=== PATIENT | female | born 1980 | race African-American/Black ===

== ENCOUNTER 2016-07-23 04:35 | Emergency (ER) | payer OTHER ==
[~2016-07-23] VITALS: Ht 165.1 cm; Wt 70.3 kg
[2016-07-23] MEDS ORDERED: MELO15TA4 PO (05:21)
[2016-07-23] MEDS ORDERED: IRON65TA PO (05:21)
[2016-07-23] MEDS ORDERED: CYCL10TA PO (05:21)
== END 2016-07-23 06:41 | disposition left against medical advice (07) ==
LOC: M ED 05:54
DX: K08.89 Other specified disorders of teeth and supporting structures (principal); Z53.29 Procedure and treatment not carried out because of patient's decision for other reasons

== ENCOUNTER 2016-12-08 08:05 | Emergency (ER) | payer OTHER ==
[~2016-12-08] VITALS: Ht 167.6 cm; Wt 71.8 kg
[~2016-12-08 08:05] MED LIST: CYCL10TA PO; IRON65TA PO; MELO15TA4 PO
[2016-12-08] MEDS ORDERED: IBUP200C10 PO (08:24)
[2016-12-08] MEDS ORDERED: ONDANSETRON 4MG/2ML VIAL (J2405) IV ONE (09:00)
[2016-12-08] MEDS ORDERED: NS 1,000 ML IV ONE (09:00)
[2016-12-08 09:21] LABS: ADD MANUAL DIFFER YES; MEAN CORPUSCULAR HEMOGLOBIN 23.8 pg (27.0-33.0); MEAN CORPUSCULAR VOLUME 79.2 fl (80.0-96.0); PLATELET COUNT, AUTOMATED 393 k/mm3 (150-450); RED CELL DISTRIBUTION WIDTH 16.4 % (11.5-14.5); WHITE BLOOD COUNT 4.2 K/mm3 (4.0-10.0)
[2016-12-08 09:52] LABS: EOSINOPHILS 3 % (0-5); HYPOCHROMASIA 3+; PLATELET CLUMPS SMALL AMT
[2016-12-08 10:15] LABS: ALBUMIN 3.4 GM/DL (3.2-5.2); ALBUMIN/GLOBULIN RATIO 0.87 (1.00-1.93); ALKALINE PHOSPHATASE 58 U/L (45-117); ALT/SGPT 16 U/L (12-78); AMYLASE 57 U/L (25-115); ANION GAP 9 MEQ/L (8-16); AST/SGOT 14 U/L (15-37); BILIRUBIN,DIRECT 0.1 MG/DL (0.0-0.2); BILIRUBIN,TOTAL 0.3 MG/DL (0.2-1.0); BLOOD UREA NITROGEN 8 MG/DL (7-18); CALCIUM LEVEL 8.3 MG/DL (8.5-10.1); CARBON DIOXIDE LEVEL 27 MEQ/L (21-32); CHLORIDE LEVEL 106 MEQ/L (98-107); CREATININE FOR GFR 0.68 MG/DL (0.55-1.02); GLOMERULAR FILTRATION RATE > 60.0 (>60); GLUCOSE, FASTING 96 MG/DL (70-105); POTASSIUM SERUM 3.4 MEQ/L (3.5-5.1); SODIUM LEVEL 142 MEQ/L (136-145); TOTAL PROTEIN 7.3 GM/DL (6.4-8.2)
[2016-12-08] MEDS ORDERED: ISOVUE-370 76% 100ML VIAL (Q9967) As Ordered ONE (10:38)
[2016-12-08 11:29] LABS: CONTROL LINE HCG INT CTR LINE PRESENT
--- NOTE | 2016-12-08 12:06 | REP ---
CT of the abdomen and pelvis with IV contrast, without bowel contrast: Comparison is 04/07/2015. Pelvis: The cecum is on a redundant mesentery is located in the pelvis on the left. The appendix has a normal appearance. There is no CT evidence of appendicitis. There is a small volume of ascites in the dependent pelvis. The uterus and adnexa are unremarkable. There is no adenopathy or mass. The pelvic bowel loops are otherwise unremarkable. Abdomen: The visualized lung florian are unremarkable. The hepatic parenchyma, gallbladder, pancreas and spleen are unremarkable. The adrenals, kidneys, abdominal aorta, bowel and mesentery are unremarkable. Impression: Small volume of ascites in the dependent pelvis. The appendix has a normal appearance. The cecum is on a redundant mesentery in the cecum and appendix are located in the pelvis on the left. Signed by Joey Bauman MD 12/08/2016 11:57 A
[2016-12-08 12:42] VITALS: BP 144/77
== END 2016-12-08 13:01 | disposition home or self-care (01) ==
LOC: M ED 08:05
DX: R10.9 Unspecified abdominal pain (principal)
CPT/HCPCS: 36415; 74177; 80048; 80076; 81001; 82150; 83605; 83690; 84703; 85025; 87040; 87086; 87210; 87491; 87591; 96374; 99283; Q9967

== ENCOUNTER 2017-02-18 16:56 | Emergency (ER) | payer OTHER ==
[~2017-02-18] VITALS: Ht 165.1 cm; Wt 73.6 kg
[~2017-02-18 16:56] MED LIST changes: +IBUP200C10 PO
[2017-02-18 19:12] LABS: CONTROL LINE UCG INT CTR LINE PRESENT
[2017-02-18 19:15] LABS: BASO % 0.5 % (0.0-1.0); EOS # 0.1 10^3/uL (0.0-0.50); EOS % 1.1 % (0.0-3.0); IMMATURE GRANULOCYTE % 0.4 % (0-0); LYMPH # 1.4 10^3/uL (1.5-4.5); MEAN CORPUSCULAR HEMOGLOBIN 28.1 pg (27.0-33.0); MEAN CORPUSCULAR HGB CONC 30.9 g/dl (32.0-36.5); MEAN CORPUSCULAR VOLUME 90.6 fl (80.0-96.0); MONO # 0.6 10^3/uL (0.0-0.8); MONO % 10.2 % (0.0-5.0); NEUTROPHILS # 3.4 10^3/uL (1.8-7.7); NEUTROPHILS % 61.8 % (36.0-66.0); PLATELET COUNT, AUTOMATED 207 10^3/uL (150-450); WHITE BLOOD COUNT 5.5 10^3/uL (4.0-10.0)
[2017-02-18 19:21] LABS: ADD MORPHOLOGY? YES; POSITIVE MORPH POS FLAG; RED CELL DISTRIBUTION WIDTH 20.7 % (11.5-14.5)
[2017-02-18 19:49] LABS: ALBUMIN 3.7 GM/DL (3.2-5.2); ALKALINE PHOSPHATASE 57 U/L (45-117); ALT/SGPT 31 U/L (12-78); ANION GAP 7 MEQ/L (8-16); AST/SGOT 22 U/L (15-37); BILIRUBIN,DIRECT < 0.1 MG/DL (0.0-0.2); BILIRUBIN,TOTAL 0.2 MG/DL (0.2-1.0); BLOOD UREA NITROGEN 16 MG/DL (7-18); CALCIUM LEVEL 8.7 MG/DL (8.5-10.1); CARBON DIOXIDE LEVEL 29 MEQ/L (21-32); CHLORIDE LEVEL 105 MEQ/L (98-107); CREATININE FOR GFR 0.71 MG/DL (0.55-1.02); FREE T4 0.94 NG/DL (0.76-1.46); GLOMERULAR FILTRATION RATE > 60.0 (>60); GLUCOSE, FASTING 85 MG/DL (70-105); POTASSIUM SERUM 3.7 MEQ/L (3.5-5.1); SODIUM LEVEL 141 MEQ/L (136-145); TOTAL PROTEIN 7.4 GM/DL (6.4-8.2)
[2017-02-18 19:55] LABS: ANISOCYTOSIS 2+; HYPOCHROMASIA 1+; MICROCYTOSIS 1+
--- NOTE | 2017-02-18 19:55 | REP ---
PA and lateral chest: The lung florian are clear. The cardiac size is normal The rachele, mediastinum, and bony thorax are unremarkable. Impression: Negative PA and lateral chest. There is no interval change. Comparison is 05/29/2015. Signed by Joey Bauman MD 02/18/2017 07:46 P
[2017-02-18 20:09] VITALS: BP 134/83
--- NOTE | 2017-02-19 05:59 | ECGEPIP ---
Stationary ECG Study [facility] - ED Test Date: 2017-02-18 Pat Name: MATIAS GARCIA Department: Room: - Gender: F Laundry Operator: ct : 1980 Requested By: NESS Olivo PA-C Order Number: [id number] Reading MD: Rito Bland Measurements Intervals [place] Rate: 76 P: 9 FL: 142 QRS: 49 QRSD: 86 T: -2 QT: 366 QTc: 412 Interpretive Statements SINUS RHYTHM INCOMPLETE RIGHT BUNDLE BRANCH BLOCK NSTTW ABNORMALITIES Electronically Signed On 02-19-2017 5:59:17 EDT by Rito Bland
== END 2017-02-18 20:28 | disposition home or self-care (01) ==
LOC: M ED 16:56
DX: M54.2 Cervicalgia (principal); R07.89 Other chest pain; Z73.3 Stress, not elsewhere classified; D64.9 Anemia, unspecified

== ENCOUNTER 2017-04-06 05:15 | Emergency (ER) | payer OTHER ==
[~2017-04-06] VITALS: Ht 165.1 cm; Wt 74.1 kg
[2017-04-06] MEDS ORDERED: ONDANSETRON 4MG/2ML VIAL (J2405) IV ONE (06:15)
[2017-04-06] MEDS ORDERED: NS 1,000 ML IV ONE (06:15)
[2017-04-06] MEDS ORDERED: KETOROLAC 30 MG/ML VIAL (J1885) IV ONE (06:15)
[2017-04-06 06:59] LABS: BASO % 0.5 % (0.0-1.0); EOS # 0.1 10^3/uL (0.0-0.50); EOS % 1.6 % (0.0-3.0); IMMATURE GRANULOCYTE % 0.2 % (0-0); LYMPH % 34.7 % (24.0-44.0); MEAN CORPUSCULAR HEMOGLOBIN 29.2 pg (27.0-33.0); MEAN CORPUSCULAR HGB CONC 32.5 g/dl (32.0-36.5); MEAN CORPUSCULAR VOLUME 89.6 fl (80.0-96.0); MONO # 0.5 10^3/uL (0.0-0.8); MONO % 9.2 % (0.0-5.0); NEUTROPHILS # 3.1 10^3/uL (1.8-7.7); NEUTROPHILS % 53.8 % (36.0-66.0); PLATELET COUNT, AUTOMATED 350 10^3/uL (150-450); RED CELL DISTRIBUTION WIDTH 15.5 % (11.5-14.5); WHITE BLOOD COUNT 5.7 10^3/uL (4.0-10.0)
[2017-04-06 07:28] LABS: ALBUMIN 3.5 GM/DL (3.2-5.2); ALBUMIN/GLOBULIN RATIO 0.76 (1.00-1.93); ALKALINE PHOSPHATASE 62 U/L (45-117); ALT/SGPT 20 U/L (12-78); ANION GAP 8 MEQ/L (8-16); AST/SGOT 18 U/L (7-37); BILIRUBIN,DIRECT < 0.1 MG/DL (0.0-0.2); BILIRUBIN,TOTAL < 0.1 MG/DL (0.2-1.0); BLOOD UREA NITROGEN 9 MG/DL (7-18); CALCIUM LEVEL 8.7 MG/DL (8.5-10.1); CARBON DIOXIDE LEVEL 25 MEQ/L (21-32); CHLORIDE LEVEL 106 MEQ/L (98-107); CREATININE FOR GFR 0.64 MG/DL (0.55-1.02); GLOMERULAR FILTRATION RATE > 60.0 (>60); GLUCOSE, FASTING 100 MG/DL (70-105); SODIUM LEVEL 139 MEQ/L (136-145); TOTAL PROTEIN 8.1 GM/DL (6.4-8.2)
[2017-04-06] MEDS ORDERED: NORCOTAB PO ×2 (08:36→08:39)
[2017-04-06 08:47] VITALS: BP 129/77
--- NOTE | 2017-04-06 09:34 | REP ---
PELVIC AND ENDOVAGINAL PROBE ULTRASOUND: 04/06/2017 CLINICAL HISTORY: Left lower quadrant pain. History of ovarian cysts and endometriosis. COMPARISON: CT abdomen pelvis 12/08/2016. FINDINGS: Sonographic evaluation shows the uterus retroverted and measures 8.8 x 5.6 x 6.9 cm. It is mildly heterogeneous in its echotexture throughout the myometrium without discrete or measurable mass. Endometrial stripe is thickened 19.5 mm in the body and fundus in this patient who is premenstrual. No fluid in the endometrial cavity or endocervical canal. Right ovary is 3.4 x 2.4 x 2.6 cm. It shows Doppler tracing with resistive index of 0.76 and a few small follicles. Color flow within. No torsion. The left ovary is 5.5 x 3 x 2.5 cm. Within it is a complex, hemorrhagic follicle 1.7 cm and a few small subcentimeter follicles. Color flow seen within that ovary and Doppler tracing shows resistive index 0.63. There is a small amount of a complex free fluid in the pelvis involving the adnexa and cul-de-sac. IMPRESSION: 1. Retroverted uterus with thickened endometrium in a patient about to start her menses. No fluid endometrial cavity or cervical canal. The heterogeneous uterus myometrium without measurable mass noted. 2. Normal right ovary. Left ovary with a 1.7 cm hemorrhagic follicle. There are multiple subcentimeter follicles in both ovaries and a mild amount of complex free fluid throughout the pelvis. This may reflect a ruptured hemorrhagic cyst. Signed by Alonso Arango MD 04/06/2017 07:27 P
== END 2017-04-06 08:50 | disposition home or self-care (01) ==
LOC: M ED 05:15
DX: N83.02 Follicular cyst of left ovary (principal); N80.9 Endometriosis, unspecified; D64.9 Anemia, unspecified; G89.29 Other chronic pain; M54.9 Dorsalgia, unspecified; Z86.010 Personal history of colon polyps
CPT/HCPCS: 76830; 76856; 80048; 80076; 81001; 81025; 83690; 85025; 93976; 96374; 96375; 99284; J1885; J2405